=== PATIENT | female | born 1990 | race Caucasian/White ===

== ENCOUNTER 2016-07-18 23:17 | Emergency (ER) | payer SELFPAY ==
[~2016-07-18] VITALS: Ht 147.3 cm; Wt 52.2 kg
[~2016-07-18 23:17] MED LIST: FERR325E14 PO; PREN-385 PO
[2016-07-18 23:40] VITALS: BP 117/83
--- NOTE | 2016-07-19 00:02 | NUR ---
PT TAKEN TO OF
--- NOTE | 2016-07-19 00:25 | NUR ---
[facility] in [facility] - 07/19/16 at [address] Santos evaluating patient
--- NOTE | 2016-07-19 00:55 | NUR ---
Dr. Santos evaluating patient
[2016-07-19] MEDS ORDERED: FAMOTIDINE 20 MG TAB PO ONE (01:00)
[2016-07-19] MEDS ORDERED: DEXAMETHASONE 4 MG/ML VIAL PO ONE (01:00)
[2016-07-19] MEDS ORDERED: hydrOXYzine HCL 25 MG TAB PO ONE (02:40)
[2016-07-19 02:45] VITALS: BP 111/75
--- NOTE | 2016-07-19 02:45 | NUR ---
Patient discharged with v/s stable. Written and verbal after care instructions given and explained. Patient alert, oriented and verbalized understanding of instructions. Ambulatory with steady gait. All questions addressed prior to discharge. ID band removed. Patient advised to follow up with PMD. Rx of BENADRYL, PREDNISONE, AND PEPCID given. Patient educated on indication of medication including possible reaction and side effects. Opportunity to ask questions provided and answered.
== END 2016-07-19 02:45 | disposition home or self-care (01) ==
LOC: MED 23:17
DX: T78.1XXA Other adverse food reactions, not elsewhere classified, initial encounter (principal); L50.9 Urticaria, unspecified; X58.XXXA Exposure to other specified factors, initial encounter
CPT/HCPCS: 81025; 96372; 99283; J0171; J1100; Q0163